=== PATIENT | female | born 1930 ===

== ENCOUNTER 2017-12-30 15:02 | Outpatient (CLI) | payer OTHER ==
[~2017-12-30] VITALS: Ht 154.9 cm; Wt 44.5 kg
== END 2017-12-30 15:20 | disposition home or self-care (01) ==
LOC: OFIC 805 15:02
DX: K21.9 Gastro-esophageal reflux disease without esophagitis (principal); M54.2 Cervicalgia; R49.0 Dysphonia

== ENCOUNTER → 2018-01-09 | Outpatient (CLI) | payer OTHER | END | disposition home or self-care (01) | LOC: SONOGRAMA 13:20 | DX: E04.0 Nontoxic diffuse goiter (principal) ==

== ENCOUNTER 2018-01-27 14:01 | Outpatient (CLI) | payer OTHER ==
[~2018-01-27] VITALS: Ht 152.4 cm; Wt 44.5 kg
== END 2018-01-27 14:15 | disposition home or self-care (01) ==
LOC: OFIC 805 14:01
DX: K21.9 Gastro-esophageal reflux disease without esophagitis (principal); M54.2 Cervicalgia